=== PATIENT | male | born 1975 | race Caucasian/White ===

== ENCOUNTER 2016-09-03 11:06 | Emergency (ER) | payer BC ==
--- NOTE | ~2016-09-03 | US67 ---
[facility] A Service of [facility] RADIOLOGY TEXT RESULTS PATIENT: PRESTON BOGGS LOCATION: [facility] : 71 UNIT #: [id number] AGE: [address]: Kan Elizabeth MD SEX: M ORDER DR: [id number] [facility] [address] [place], [place] [address] [id number] MR#: [id number] #: [id number] NAME: PRESTON BOGGS. : 1975 SEX: M STUDY DATE/TIME: 09/03/2016 14:35 UNIT: [facility] ROOM: STUDY DESCRIPTION: US Gallbladder Attending Physician: Kan Elizabeth M.D. Ordering Physician: Kan Elizabeth M.D. Primary Care Physician: Dhruv Kincaid M.D. MEDICAL IMAGING REPORT This report is preliminary unless electronic signature is present EXAM Gallbladder ultrasound. DATE OF EXAM 09/03/2016 INDICATIONS 41-year-old male with right upper quadrant pain times 3-4 days. Lap-Band procedure done and ever since, the patient has had abdominal discomfort and acid reflux with bending. Hypertension, hyperlipidemia. TECHNIQUE Sonographic imaging of the right upper quadrant was performed. COMPARISON STUDIES 12/25/2014 FINDINGS The pancreas was obscured by bowel gas and not seen or evaluated. Survey images of the liver demonstrate difficulty penetrating the parenchyma with the ultrasound beam most characteristic of fatty infiltration. The liver to the extent visualized measures about 13.4 cm long axis. There is no focal liver mass, intrahepatic ductal dilatation or ascites but evaluation is degraded by the degree of fatty infiltration. The right kidney is nonobstructed and measures 9.9 cm long axis. The gallbladder is sonographically unremarkable. No shadowing stone, wall thickening or pericholecystic fluid. Portions of the gallbladder were also not well visualized or assessed due to a limited sonographic window. Extrahepatic common bile duct is mildly dilated at 7 mm. No sonographic Major's sign was described by the technologist. IMPRESSION [facility] A Service of [facility] RADIOLOGY TEXT RESULTS PATIENT: PRESTON BOGGS LOCATION: [facility] : 71 UNIT #: [id number] AGE: [address]: Kan Elizabeth MD SEX: M ORDER DR: 1. Imaging features most characteristic of fatty infiltration of the liver. 2. No evidence of cholelithiasis or intrahepatic ductal dilatation. 3. Extrahepatic common bile duct mildly dilated at 7 mm, nonspecific. 4. Pancreas not well visualized or assessed. Dictated by... Jl Byers M.D. THIS IS AN ELECTRONICALLY VERIFIED REPORT Jl Byers M.D. at 09/04/2016 5:33 PM Ty TD: 09/03/2016 16:07 JOB #: [id number] MEDICAL IMAGING REPORT Page 1 of 1 COPY
--- NOTE | ~2016-09-03 | EKG ---
PATIENT: PRESTON BOGGS UNIT #: [id number] Ventricular Rate: 67 BPM Atrial Rate: 67 BPM P-R Interval: 130 ms QRS Duration: 96 ms Q-T Interval: 408 ms QTC Calculation(Bezet): 431 ms P [place]: 14 degrees Calculated R [place]: 9 degrees Calculated T [place]: 39 degrees Diagnosis Line: Normal sinus rhythm Diagnosis Line: Normal ECG Diagnosis Line: When compared with ECG of 24-DEC-2014 07:33, Diagnosis Line: No significant change was found Diagnosis Line: Confirmed by LARRY CISNEROS MD ([id number]) on 09/07/2016 Diagnosis Line: 3:49:10 PM INTERPRETING MD: AMELIA EGAN
[~2016-09-03 11:06] MED LIST: COLESTID1 GM PO; COLESTIPOL HCL1 G PO; DISCONTINUED MED PO; IBUPROFEN600 MG PO; LISINOPRIL20 MG PO; LORTAB 7.51 TAB PO; OMEPRAZOLE20 M2 PO; PRILOSEC20 MG PO; PRINIVIL20 M1 PO; SIMVASTATIN40 MG PO; [UNRECOGNIZED DRUG - REMARK]
[2016-09-03 12:08] LABS: BASOPHIL# 0.1 X10e3 (0-0.3); BASOPHIL% 0.6 % (0-2.5); EOSINOPHIL# 0.2 X10e3 (0-0.7); EOSINOPHIL% 1.9 % (0.0-7.0); HEMATOCRIT 48.2 % (38.0-50.0); HEMOGLOBIN 16.2 gm/dL (13.0-16.0); LYMPHOCYTE# 2.8 X10e3 (1.0-3.5); LYMPHOCYTE% 22.3 % (17.0-45.0); MEAN CELL VOLUME 89.4 FL (83-96); MEAN CORPUSCULAR HEMOGLOBIN 30.1 PG (28-34); MEAN CORPUSCULAR HGB CONC 33.7 g/dL (30-36); MEAN PLATELET VOLUME 9.3 FL (6.5-11.5); MONOCYTE% 8.3 % (3.0-12.0); NEUTROPHIL# 8.3 X10e3 (1.5-7.1); NEUTROPHIL% 66.9 % (40-75); PLATELET COUNT 194 X10e3 (140-420); RED BLOOD COUNT 5.39 X10e (3.90-5.60); RED CELL DISTRIBUTION WIDTH 14.3 % (11.0-15.5); WHITE BLOOD COUNT 12.4 X10e3 (4.0-10.5)
[2016-09-03 12:14] LABS: DIFF IND NO
[2016-09-03 12:38] LABS: ALBUMIN SERUM 4.2 g/dL (3.5-5.0); BILIRUBIN, DIRECT 0.2 mg/dL (0.0-0.2); BILIRUBIN,INDIRECT 0.9 mg/dL (0.0-0.9); BILIRUBIN,TOTAL 1.1 mg/dL (0.2-2.0); CALCIUM SERUM 9.5 mg/dL (8.4-10.2); GLOM FILT RATE Estimated 91.8 mL/min (>60); POTASSIUM 3.5 mmol/L (3.5-5.1); PROTEIN TOTAL SERUM 8.6 g/dL (6.0-8.3)
== END 2016-09-03 15:35 | disposition home or self-care (01) ==
LOC: CED 11:06
PROVIDERS: Emergency Medicine
DX: R10.13 Epigastric pain (principal); R10.11 Right upper quadrant pain; I10 Essential (primary) hypertension; F17.200 Nicotine dependence, unspecified, uncomplicated; Z90.49 Acquired absence of other specified parts of digestive tract; Z98.890 Other specified postprocedural states; Z79.899 Other long term (current) drug therapy
CPT/HCPCS: 36415; 76705; 80048; 80076; 82150; 83690; 85025; 93005; 96361; 96374; 99284; J1170

== ENCOUNTER → 2016-11-28 | Outpatient (CLI) | payer BC ==
--- NOTE | ~2016-11-28 | NM22 ---
[facility] A Service of [facility] RADIOLOGY TEXT RESULTS PATIENT: PRESTON BOGGS LOCATION: [facility]IN [facility] : 71 UNIT #: [id number] AGE: [address]: Dhruv Kincaid MD SEX: M ORDER DR: [id number] [place] [id number] [facility]. [place], [place] [address] [id number] O MR#: [id number] Acc #: [id number] NAME: PRESTON BOGGS : 1975 SEX: M STUDY DATE/TIME: 11/28/2016 12:14 UNIT: [facility] ROOM: STUDY DESCRIPTION: IRENA Hepatobiliary W GB Pharm Attending Physician: Dhruv Kincaid M.D. Referring Physician: Dhruv Kincaid M.D. Ordering Physician: Dhruv Kincaid M.D. Primary Care Physician: Dhruv Kincaid M.D. MEDICAL IMAGING REPORT This report is preliminary unless electronic signature is present EXAM HIDA scan with Kinevac CCK 11/28/2016 HISTORY Right upper quadrant abdominal pain radiating to the back for 2 years. Diarrhea, acid reflux symptoms began 2 years ago. FINDINGS The patient received intravenous injection of 5.93 mCi of technetium 99m tagged Choletec for hepatobiliary imaging. 1 hour following injection of the radiopharmaceutical the patient received an intravenous injection of 2.9 mcg of Kinevac. There is homogeneous distribution of the radiotracer throughout the liver. Gallbladder activity is seen by 30 minutes postinjection of the radiopharmaceutical. Following Kinevac injection the gallbladder ejection fraction was 65.8% (normal is greater than 30%). IMPRESSION Normal HIDA scan with gallbladder ejection fraction of 65.8%. Dictated by... Preston Shetty M.D. THIS IS AN ELECTRONICALLY VERIFIED REPORT Preston Shetty M.D. at 12/01/2016 7:21 AM RAFI/foreign TD: 11/28/2016 19:18 JOB #: [id number] MEDICAL IMAGING REPORT [facility] A Service [facility] RADIOLOGY TEXT RESULTS PATIENT: PRESTON BOGGS LOCATION: [facility]IN [facility] : 71 UNIT #: [id number] AGE: [address]: Dhruv Kincaid MD SEX: M ORDER DR: Page 1 of 1 COPY
== END | disposition home or self-care (01) ==
LOC: CNUC 11:31
DX: R10.9 Unspecified abdominal pain (principal)
CPT/HCPCS: 78227; A9537; J2805